=== PATIENT | male | born 1960 | race American Indian/Alaskan Native ===

== ENCOUNTER 2017-07-09 12:17 | Outpatient (CLI) | payer MEDICAID ==
--- NOTE | 2017-07-09 14:54 | XRay Report ---
XRAY BILATERAL SHOULDER THREE VIEWS EACH: 07/09/17 12:17:00 CLINICAL: Bilateral shoulder pain. FINDINGS: Right: No fracture or dislocation. Moderate glenohumeral joint arthritis with a large inferior osteophyte, narrowing of the joint space and slight irregularity of the glenoid rim. Normal acromioclavicular joint. Normal soft tissues. Left: No fracture or dislocation. Slight irregularity of the glenoid but otherwise normal glenohumeral joint. Normal acromioclavicular joint. Normal soft tissues. IMPRESSION: Moderate right glenohumeral joint osteoarthritis and minimal leftglenohumeral joint arthritis.
== END 2017-07-09 12:18 | disposition home or self-care (01) ==
LOC: SPVIMAG 12:17
PROVIDERS: ATTEND Orthopaedic Surgery
DX: M19.011 Primary osteoarthritis, right shoulder (principal); M19.012 Primary osteoarthritis, left shoulder